=== PATIENT | female | born 1930 | race Caucasian/White ===

== ENCOUNTER 2019-03-07 20:36 | Emergency (ER) | payer OTHER | END 2019-03-07 23:23 | disposition home or self-care (01) | LOC: EDH 20:36 | DX: S01.511A Laceration without foreign body of lip, initial encounter (principal); S60.012A Contusion of left thumb without damage to nail, initial encounter; S60.011A Contusion of right thumb without damage to nail, initial encounter; E07.9 Disorder of thyroid, unspecified; Z90.710 Acquired absence of both cervix and uterus; W18.39XA Other fall on same level, initial encounter; Y93.01 Activity, walking, marching and hiking; Y92.89 Other specified places as the place of occurrence of the external cause; Y99.8 Other external cause status | CPT/HCPCS: 73130 ==

== ENCOUNTER 2019-08-23 00:35 | Emergency (ER) | payer OTHER ==
[2019-08-23 01:08] LABS: BASOPHILS % (AUTO) 0.6 % (0.0-5.0); EOSINOPHILS % (AUTO) 2.4 % (0.0-8.0); HEMATOCRIT 36.9 % (36-48); LYMPHOCYTES % (AUTO) 45.8 % (21.0-51.0); MEAN CORPUSCULAR HEMOGLOBIN 31.5 pg (27.0-33.0); MEAN CORPUSCULAR HGB CONC 33.8 g/dL (32.0-36.0); MEAN CORPUSCULAR VOLUME 93.1 fL (79-99); MONOCYTES % (AUTO) 10.2 % (3.0-13.0); NUCLEATED RED BLOOD CELLS 0.1 % (0.0-0.19); PLATELET COUNT (AUTO) 294 K/uL (130-400); RED BLOOD CELL COUNT(AUTO) 3.96 MIL/uL (4.00-5.50); RED CELL DISTRIBUTION WIDTH 14.2 % (11.0-15.5); WHITE BLOOD COUNT (AUTO) 5.6 K/uL (4.8-10.8)
[2019-08-23 01:17] LABS: CREATININE 1.1 mg/dL (0.5-1.5); POTASSIUM 4.5 mmol/L (3.5-5.1)
[2019-08-23 01:20] LABS: INR 0.92 (0.85-1.15); PARTIAL THROMBOPLASTIN TIME 23.8 SEC (26.3-35.5); PROTHROMBIN TIME 9.7 SEC (9.6-11.6)
[2019-08-23 01:21] LABS: ALBUMIN 3.5 g/dL (3.5-5.0); BILIRUBIN,TOTAL 0.4 mg/dL (0.2-1.0); TOTAL PROTEIN, SERUM 7.1 g/dL (6.0-8.3)
[2019-08-23 02:57] LABS: BILIRUBIN,URINE Negative (NEGATIVE); COLOR,URINE Yellow (YELLOW); GLUCOSE, URINE (UA) Negative (NEGATIVE); KETONES,URINE Negative (NEGATIVE); LEUKOCYTE ESTERASE ,URINE Large (NEGATIVE); NITRATE,URINE Negative (NEGATIVE); OCCULT BLOOD,URINE Trace (NEGATIVE); PH,URINE 5.5 (5.0-8.0); PROTEIN,URINE Trace mg/dL (NEGATIVE); UROBILINOGEN,URINE 0.2 mg/dL (0.2-1.0)
[2019-08-23 03:04] LABS: APPEARANCE,URINE SLIGHTLY CLOUDY (CLEAR)
[2019-08-23 03:11] LABS: BACTERIA,URINE Moderate /HPF (None Seen); RBC,URINE None Seen /HPF (0-1); SQUAMOUS EPITHELIAL CELL,UR Few /HPF (0-2)
[2019-08-23] MEDS ORDERED: ACETAMINOPHEN EXTRA STRENGTH 500 MG TABLET ONE (03:41)
[2019-08-23] MEDS ORDERED: CEPHALEXIN 500 MG CAPSULE ONE (03:41)
== END 2019-08-23 04:30 | disposition home or self-care (01) ==
LOC: EDH 00:35
DX: S50.11XA Contusion of right forearm, initial encounter (principal); N39.0 Urinary tract infection, site not specified; I10 Essential (primary) hypertension; E07.9 Disorder of thyroid, unspecified; Z90.710 Acquired absence of both cervix and uterus; Z90.49 Acquired absence of other specified parts of digestive tract; W18.39XA Other fall on same level, initial encounter; Y93.89 Activity, other specified; Y92.098 Other place in other non-institutional residence as the place of occurrence of the external cause; Y99.8 Other external cause status
CPT/HCPCS: 29125; 36415; 70450; 71045; 72125; 73110; 73502; 80053; 81001; 82550; 84484; 85025; 85610; 85730; 93005

== ENCOUNTER 2019-10-22 15:17 | Emergency (ER) | payer OTHER ==
[2019-10-22 15:44] LABS: BASOPHILS % (AUTO) 0.4 % (0.0-5.0); LYMPHOCYTES % (AUTO) 48.3 % (21.0-51.0); MEAN CORPUSCULAR HGB CONC 33.9 g/dL (32.0-36.0); MEAN CORPUSCULAR VOLUME 91.4 fL (79-99); MONOCYTES % (AUTO) 9.5 % (3.0-13.0); NEUTROPHILS % (AUTO) 39.6 % (40.0-77.0); PLATELET COUNT (AUTO) 295 K/uL (130-400); RED BLOOD CELL COUNT(AUTO) 3.94 MIL/uL (4.00-5.50); RED CELL DISTRIBUTION WIDTH 13.9 % (11.0-15.5); WHITE BLOOD COUNT (AUTO) 5.6 K/uL (4.8-10.8)
[2019-10-22 15:54] LABS: CREATININE 0.9 mg/dL (0.5-1.5)
[2019-10-22] MEDS ORDERED: ACETAMINOPHEN 325 MG TAB ONE (16:32)
== END 2019-10-22 19:21 | disposition home or self-care (01) ==
LOC: EDH 15:17
DX: S40.012A Contusion of left shoulder, initial encounter (principal); R51 Headache; K21.9 Gastro-esophageal reflux disease without esophagitis; F32.9 Major depressive disorder, single episode, unspecified; E03.9 Hypothyroidism, unspecified; Z90.710 Acquired absence of both cervix and uterus; Z79.899 Other long term (current) drug therapy; W18.39XA Other fall on same level, initial encounter; Y93.89 Activity, other specified; Y92.89 Other specified places as the place of occurrence of the external cause; Y99.8 Other external cause status
CPT/HCPCS: 36415; 70450; 72125; 73030; 80048; 85025; 93005

== ENCOUNTER 2019-11-16 06:09 | Day surgery (SDC) | payer OTHER ==
[2019-11-15 14:51] LABS: BASOPHILS % (AUTO) 0.4 % (0.0-5.0); EOSINOPHILS % (AUTO) 1.5 % (0.0-8.0); HEMATOCRIT 39.9 % (36-48); MEAN CORPUSCULAR HEMOGLOBIN 30.4 pg (27.0-33.0); MEAN CORPUSCULAR HGB CONC 33.1 g/dL (32.0-36.0); MEAN CORPUSCULAR VOLUME 91.9 fL (79-99); MONOCYTES % (AUTO) 8.6 % (3.0-13.0); NEUTROPHILS % (AUTO) 47.4 % (40.0-77.0); PLATELET COUNT (AUTO) 325 K/uL (130-400); RED BLOOD CELL COUNT(AUTO) 4.34 MIL/uL (4.00-5.50); RED CELL DISTRIBUTION WIDTH 13.8 % (11.0-15.5); WHITE BLOOD COUNT (AUTO) 6.9 K/uL (4.8-10.8)
[2019-11-15 15:03] LABS: CREATININE 0.9 mg/dL (0.5-1.5); POTASSIUM 4.5 mmol/L (3.5-5.1)
[2019-11-15 15:19] VITALS: BP 138/72
--- NOTE | 2019-11-15 15:36 | NUR ---
RE: ABNORMAL EKG INFORMED DR ABDALLA REGARDING ABNORMAL EKG AND PATIENT MEDICAL HISTORY. NO NEW ORDERS RECEIVED, OK TO PROCEED WITH SCHEDULED PROCEDURE.
[~2019-11-16] VITALS: Ht 152.4 cm; Wt 60.8 kg
[2019-11-16] VITALS (16 sets, daily range): BP systolic 115–158; BP diastolic 54–96
[~2019-11-16 06:09] MED LIST: ACET-66 PO; ASCO500T9 PO; CHOL4PAC PO; ESCI20TA36 PO; L.AC1CAP6 PO; LACTATED RINGERS 1000ML 1,000 ML IV SCH; LEVO50TA11 PO; MIRA25TA PO; MULT-1203 PO; PRAM0.122 PO; VITA-164 PO; VITAMIN D3 PO
[2019-11-16] MEDS ORDERED: LIDOCAINE HCL 1% 20 ML VIAL ONE (08:07)
[2019-11-16] MEDS ORDERED: PROPOFOL 10 MG/ML 20ML VIAL IV ONE (08:13)
[2019-11-16] MEDS ORDERED: LIDOCAINE 1%-EPI 1:100,000 20 ML VIAL IJ ONE (08:25)
[2019-11-16] MEDS ORDERED: SUCCINYLCHOLINE 200MG/10ML SYR ONE ×2 (08:37→08:44)
[2019-11-16] MEDS ORDERED: FENTANYL CITRATE PF 50 MCG/1 ML 2ML VIAL ONE (08:47)
--- NOTE | 2019-11-16 09:35 | NUR ---
PROSPER WATTS TO SEE PT., REGARDING HEART BLOCK AND DROPPED BEATS. CHEMICAL RESEARCH WORKER SPOKE WITH PT, SHE WILL BE GOING HOME, BUT WANTS HER TO FOLLOW UP WITH HER PRIMARY DRNorman AND GET CONSULT FOR CARDIOLOGY, REGARDING HER DROPPED BEATS. PT DOES NOT HAVE ANY SYMPTOMS. Addendum: 11/16/19 at 1039 by BOBBY NOVOA RN RN Amended: Links added.
== END 2019-11-16 11:40 | disposition home or self-care (01) ==
LOC: DAH 06:09
PROVIDERS: ATTEND Surgery
DX: C44.729 Squamous cell carcinoma of skin of left lower limb, including hip (principal); L28.0 Lichen simplex chronicus; L30.8 Other specified dermatitis; L73.8 Other specified follicular disorders; I10 Essential (primary) hypertension; K21.9 Gastro-esophageal reflux disease without esophagitis; R23.8 Other skin changes; Z79.899 Other long term (current) drug therapy; Z82.49 Family history of ischemic heart disease and other diseases of the circulatory system
CPT/HCPCS: 11402; 36415; 80048; 85025; 88307; 93005 ×2; A4215; A4221; A4222; A4223; A4450; A4663; A4930; A6260; J0330 ×2; J2704; J3010; J3490; J7120

== ENCOUNTER 2019-12-19 23:02 | Emergency (ER) | payer OTHER ==
[~2019-12-19 23:02] MED LIST changes: -LACTATED RINGERS 1000ML 1,000 ML IV SCH
== END 2019-12-20 02:01 | disposition home or self-care (01) ==
LOC: EDH 23:02
DX: S06.0X9A Concussion with loss of consciousness of unspecified duration, initial encounter (principal); S16.1XXA Strain of muscle, fascia and tendon at neck level, initial encounter; K21.9 Gastro-esophageal reflux disease without esophagitis; F32.9 Major depressive disorder, single episode, unspecified; E03.9 Hypothyroidism, unspecified; W18.39XA Other fall on same level, initial encounter; Y93.01 Activity, walking, marching and hiking; Y92.89 Other specified places as the place of occurrence of the external cause; Y99.8 Other external cause status; Z90.49 Acquired absence of other specified parts of digestive tract; Z90.710 Acquired absence of both cervix and uterus; Z79.899 Other long term (current) drug therapy
CPT/HCPCS: 70450; 72125; 93005